=== PATIENT | male | born 1990 | race Caucasian/White ===

== ENCOUNTER 2016-08-30 12:06 | Observation (INO) | payer OTHER ==
--- NOTE | 2016-08-30 12:20 | CPEKG ---
Heart Rate: 113 RR Interval: 531 P-R Interval: 132 QRSD Interval: 92 QT Interval: 320 QTC Interval: 439 P Sapello: 40 QRS Sapello: 69 T Wave Sapello: -42 EKG Severity - ABNORMAL ECG - EKG Impression: SINUS TACHYCARDIA EKG Impression: INFERIOR Q WAVES, PROBABLY NORMAL VARIATION EKG Impression: ABNORMAL T, CONSIDER ISCHEMIA, INFERIOR LEADS Electronically Signed By: Reno Rolle 30-Aug-2016 15:51:41
[2016-08-30 12:32] LABS: % IMMATURE GRANULYOCYTES 0.2 % (0.0-1.1); ABSOLUTE IMMATURE GRANULOCYTES 0.02 10^3/uL (0.00-0.10); ADD DIFF? NO; ADD MORPH? NO; ADD SCAN? NO; ATYPICAL LYMPHOCYTE FLAG 0 (0-99); FRAGMENT RBC FLAG 0 (0-99); HEMATOCRIT 46.2 % (40.0-51.0); HEMOGLOBIN 16.1 g/dL (13.7-17.5); LEFT SHIFT FLG 0 (0-99); LIPEMIA HEMOLYSIS FLAG 90 (0-99); MEAN CELL HEMOGLOBIN 30.7 pg (27.9-34.1); MEAN CELL HEMOGLOBIN CONCENTR. 34.8 g/dL (32.4-36.7); MEAN PLATELET VOLUME 8.9 fL (8.7-11.7); PLATELET CLUMPS FLAG 0 (0-99); PLATELET COUNT 287 10^3/uL (150-400); RED BLOOD CELL COUNT 5.25 10^6/uL (4.40-6.38); RED CELL DISTRIBUTION WIDTH 13.3 % (11.5-15.2)
[2016-08-30 12:50] LABS: ALANINE AMINOTRANSFERASE 70 IU/L (21-72); ALBUMIN 4.6 g/dL (3.5-5.0); ALKALINE PHOSPHATASE 72 IU/L (38-126); ANION GAP 15 mEq/L (8-16); ASPARTATE AMINOTRANSFERASE 51 IU/L (17-59); CALCIUM 9.8 mg/dL (8.5-10.4); CARBON DIOXIDE 25 mEq/l (22-31); CHLORIDE 100 mEq/L (97-110); CREATININE 1.1 mg/dL (0.7-1.3); GLOMERULAR FILTRATION RATE > 60; GLUCOSE 125 mg/dL (70-100); POTASSIUM 3.9 mEq/L (3.5-5.2); SODIUM 140 mEq/L (134-144)
[2016-08-30 13:00] LABS: TROPONIN I < 0.012 ng/mL (0-0.034)
--- NOTE | 2016-08-30 13:31 | EDPHY ---
H & P Smoking Status: Never smoked Time Seen by Provider: 08/30/16 12:51 HPI/ROS: CHIEF COMPLAINT: Syncope, chest pain HISTORY OF PRESENT ILLNESS: 26-year-old male presents to the emergency department by private vehicle complaining of chest pain for the last 12 hours. The patient states that at 11:00 p.m. he was walking into the kitchen and then had a syncopal episode. He apparently fell into the couch. He he denies hitting his head or losing consciousness. He does report pain in his shoulders and his neck for an hour prior to his syncopal episode. He now has some mild pain in his chest. He denies shortness of breath. No fevers or chills. No headache. No reported trauma. The patient has a history of hypertension since the age of 20. He was on lisinopril for about a year however this did not do anything and therefore he stop this medication. For the last 1 week he has been taking chlorthalidone his blood pressure however he developed diarrhea and so he stopped this medication 2 days ago. REVIEW OF SYSTEMS: Constitutional: No fever, no chills. Eyes: No double or blurry vision. ENT: No sore throat. Respiratory: No cough, no shortness of breath. Cardiac: chest pain. Gastrointestinal: No abdominal pain, vomiting or diarrhea. Genitourinary: No dysuria. Musculoskeletal: No neck or back pain. Skin: No rashes. Neurological: No headache. (Christy Louise) Past Medical/Surgical History: Hypertension Pertinent family history: Father presumably of heart attack in his low 40s (Christy Louise) Social History: Single (Christy Louise) Physical Exam: General Appearance: Alert, no distress. 160/120, heart rate 95 Eyes: Pupils equal and round. Extraocular motions are all intact. ENT: Mouth: Mucous membranes moist. Respiratory: No wheezing, rhonchi, or rales, lungs are clear to auscultation. Unable to reproduce pain with palpation to the anterior aspect of his chest. Cardiovascular: Regular rate and rhythm. Gastrointestinal: Abdomen is soft and nontender, no masses, no rebound or guarding, bowel sounds normal. Neurological: Alert and oriented x 3, cranial nerves II through XII grossly intact Skin: Warm and dry, no rashes. Musculoskeletal: Nontender to palpate along the cervical, thoracic or lumbar spine. Neck is supple. Extremities: Full range of motion and no peripheral edema. Psychiatric: Patient is oriented X 3, there is no agitation. (Christy Louise) Constitutional: Initial Vital Signs Temperature (C) 36.8 C 08/30/16 12:16 Heart Rate 120 H 08/30/16 12:16 Respiratory Rate 17 08/30/16 12:16 Blood Pressure 177/122 H 08/30/16 12:16 O2 Sat (%) 95 08/30/16 12:16 O2 Delivery Mode Room Air Allergies/Adverse Reactions: No Known Allergies Allergy (Unverified 08/30/16 12:16) Home Medications: Medication Instructions Recorded NK [No Known Home Meds] 08/30/16 Medical Decision Making ED Course/Re-evaluation: 26-year-old male presents after having a syncopal episode last night. He has a history of hypertension and currently has mild chest pain. Given the patient's significant family medical history including father of likely heart attack in his low 40s and history of hypertension, I recommended admission to the hospital. Patient will be admitted to the [facility] for cardiac monitoring to Dr. Benson Harris. (Christy Louise) I supervised the PA evaluation and care with the patient and agree with the assessment and plan. (Reno Rolle) Differential Diagnosis: Syncope including but not limited to vasovagal syncope, arrhythmia, dehydration , and blood loss. (Christy Louise) - Data Points Laboratory Results: Laboratory Results 08/30/16 12:15 08/30/16 12:15 Medications Given: Discontinued Medications Aspirin (Aspirin) 325 mg PO DAILY [facility] Stop: 02/26/17 14:59 Last Admin: 08/31/16 07:45 Dose: 325 mg Sodium Chloride (Ns) 1,000 mls @ 3,000 mls/hr IV ONCE ONE Stop: 08/30/16 15:05 Last Admin: 08/30/16 16:53 Dose: 1,000 mls Labetalol HCl (Trandate) 200 mg PO BID [facility] Stop: 02/26/17 16:59 Last Admin: 08/31/16 09:25 Dose: 200 mg Departure - Departure Disposition: [facility] Acute Clinical Impression: Syncope, Hypertension Condition: Good
--- NOTE | 2016-08-30 14:11 | DX ---
Chest, PA and lateral. HISTORY: Chest pain. Fainted yesterday. FINDINGS: Heart size is within normal limits. Pulmonary vascularity appears normal. The lungs are travis ar. No evidence for pleural effusion or pneumothorax. No significant osseous abnormality. IMPRESSION: Normal chest x-ray.
[2016-08-30] MEDS ORDERED: NS 1,000 ML IV ONE (14:46)
[2016-08-30] MEDS ORDERED: ACETAMINOPHEN 325 MG TAB PO PRN (14:49)
[2016-08-30] MEDS ORDERED: IOPAMIDOL (ISOVUE 370) 100 ML BTL IV ONE (14:57)
[2016-08-30 15:21] LABS: TROPONIN I < 0.012 ng/mL (0-0.034)
--- NOTE | 2016-08-30 15:47 | CT ---
CT Pulmonary Angiogram 1511 hours Clinical Indications: Tachycardia. EKG shows changes of right heart strain. Technique: Thinly collimated multidetector helical CT imaging was performed through the chest while 90 mL Isovue-370 were injected intravenously without complication. The images were reconstructed in multiple planes. Dose reduction techniques were utilized. Findings: CT Angiogram: There is no evidence of intraluminal thrombus within the pulmonary arterial system. Th e thoracic aorta has a normal contour without evidence of aneurysm or dissection. There is no perica rdial effusion. Heart size is normal. There is mild thickening of the left ventricular wall diffusely . The interventricular septum measures 17 mm in thickness. The origins of the coronary arteries are n ormal in appearance. CT Chest: The lungs are clear without infiltrate or effusion. There are no pulmonary nodules. Soft tissues are unremarkable. The visualized upper abdominal structures are unremarkable during arterial phase of imaging. Underlying hepatic steatosis is suspected. Skeletal system: Vertebral body heights are well-maintained. There are no lytic or sclerotic osseous lesions. Impression: 1. No evidence of pulmonary embolus using CT protocol. 2. Mild left ventricular hypertrophy suspected. 3. Possible hepatic steatosis.
--- NOTE | 2016-08-30 16:27 | GHP ---
[f rep st] HISTORY AND PHYSICAL DATE OF ADMISSION: 08/30/2016 HISTORY OF PRESENT ILLNESS: The patient is a pleasant 26-year-old gentleman with a history of hypert ension who presents with neck pain. He was recently started on chlorthalidone about 1 week ago and he developed diarrhea and "weird erect ions." Sounds like they lasted a long time, but they ultimately went down. He stopped it 3 days preeti or to presentation. His symptoms have subsequently resolved. He felt in his usual state of health 2 days ago and then yesterday, last evening, he felt some neck pain, and he had a syncopal episode whe re he felt everything kind of go dark. He laid down, he put his legs above his head, and it resolved . Then last night he had neck pain. He has had no pleuritic pain. No calf edema. No long car trip s or plane trips. No recent hospitalizations. No family history of VTE. He takes no estrogen-conta ining compounds. His father in his 40s of uncertain etiology. It sounds like he was seen in [facility] and had a negative D-dimer yesterday. He has not had hemoptysis. He is not short of breath. He did not prior to this have a history of an ginal symptoms and has adequate exercise tolerance. He does have striae or stretch jha on his abdomen and groin, and he has been worked up for Orquidea disease at least with a morning cortisol which has been normal. The patient's heart rate had no response to vagal maneuvers at the bedside. REVIEW OF SYSTEMS: Complete 10-point review of systems conducted negative except as noted in the HPI . PAST MEDICAL HISTORY: 1. Hypertension. 2. Stretch jha of possible Hunker's. ALLERGIES: No known drug allergies; although, he appears intolerant of chlorthalidone. CURRENT MEDICATIONS: None. SOCIAL HISTORY: He is a student financial aid manager in chemistry at . He does not smoke cigarettes. He drin ks 1-2 drinks daily. FAMILY HISTORY: Significant in that his father at an early age of uncertain cause, possibly car diac. PHYSICAL EXAM: VITAL SIGNS: Presented with vitals temp 36.8, blood pressure 177/122, pulse 120, dayna athing 17 times a minute, 95% on room air. GENERAL: No acute distress. HEENT: Sclerae anicteric. Oropharynx clear. Mucous membranes are moist. NECK: Supple without lymphadenopathy or JVD. LUNGS : Clear to auscultation bilaterally. HEART: S1, S2 and tachycardic. ABDOMEN: Soft, nontender, no ndistended. There are stretch jha in his inferior abdomen and under his pectoral muscles. LOWER E XTREMITIES: Without edema. Calves nontender. SKIN: Without rash. NEUROLOGIC: Grossly nonfocal. LABS: Sodium 140, potassium 3.9, chloride 100, bicarb 25, BUN 17, creatinine 1.1. Glucose 125. LFT s normal. Troponin less than 0.012. White count 8.3, hematocrit 46, platelets are 287,000. Chest x-ray, interpreted by me, shows no acute cardiopulmonary disease. EKG, interpreted by me, shows sinus tach at 113 with normal axis and intervals. There is an S wave i n lead I. There is T-wave inversion in lead III with possible Q in lead III. There are diffuse flat Ts in the lateral precordial leads. I have discussed the case with Christy Louise in the emergency department. ASSESSMENT/PLAN: A 26-year-old gentleman who presents with hypertension, tachycardia, abnormal EKG, and syncopal episode. 1. Question pulmonary embolism. Certainly, the patient has sinus tachycardia and possible right hea rt strain on EKG. He did have a negative D-dimer yesterday. That test is imperfect and certainly th e test characteristics are less impressive in a high-risk patient which he represents now. Perform C T PE. 2. Question coronary artery disease. It sounds like his father may have had sudden cardiac in his 40s. We will cycle his troponins and order a stress test in the morning. 3. Sinus tachycardia. Workup, will undergo as above. Reviewed the EKG to verify sinus. I will horacio ck a stat TSH and I will fluid challenge him. Also, will check a cortisol in the morning. I do not think the patient is in alcohol withdrawal at this time; although, his vital signs support that. His mental status is very clear and he is not tremulous, we will follow. I do not think this represents sepsis. The patient has no focus of infection. He is afebrile without a white count. 4. Hypertension: The patient warrants an antihypertensives medication. I would likely start an ang iotensin converting enzyme inhibitor following confirmation of no pulmonary embolism. 5. Prophylaxis: Pharmacology prophylaxis indicated if in the hospital longer than 24 hours, he curr ently is not. 6. Disposition: Observation status, [facility]. /[id number]/MODL
[2016-08-30] MEDS: LABETALOL HCL 200 MG TAB PO SCH ×2 (17:10→20:14)
[2016-08-30] MEDS: ASPIRIN 325 MG TAB PO SCH (17:11)
[2016-08-31 06:46] LABS: CHOLESTEROL 243 mg/dL (140-200); CHOLESTEROL/HDL RATIO 5.79 RATIO (1.00-4.97); HIGH DENSITY LIPOPROTEIN 42 mg/dL (40-70); NON-HIGH DENSITY LIPOPROTEIN 201 mg/dL (90-129)
[2016-08-31 07:03] LABS: TRIGLYCERIDE 497 mg/dL (40-150)
[2016-08-31 07:17] LABS: CORTISOL-AM 8.4 ug/dL (4.5-22.7)
[2016-08-31] MEDS: ASPIRIN 325 MG TAB PO SCH (07:45)
[2016-08-31] MEDS: LABETALOL HCL 200 MG TAB PO SCH (09:25)
[2016-08-31 12:23] VITALS: BP 146/88; PULSE 105; RESP 16; TEMP 98.4; O2SAT 94
--- NOTE | 2016-08-31 13:12 | CPR ---
[f rep st] NONINVASIVE CARDIAC PROCEDURE REPORT PROCEDURE: Exercise treadmill myocardial perfusion imaging study. INDICATION FOR PROCEDURE: Syncopal event, abnormal electrocardiogram, and a family history of early onset of coronary artery disease. DESCRIPTION OF PROCEDURE: After obtaining informed consent, patient was placed on electrocardiogram, initial EKG shows sinus rhythm, normal axis, nondiagnostic Q-waves in inferior leads, T-wave biphasic T-waves in lead 3. Patient denies of any chest pain, shortness of breath, or symptoms suggesting of ischemia. Initial blood pressure 110/80, saturating 95% on room air. STRESS: Patient was placed on an exercise treadmill, following standard Mamadou protocol with the following findings: 1. Patient exercised for 9 minutes. 2. 10.3 METS. 3. Obtaining a heart rate of 182 BPM, which was 92% of his MPHR. 4. Patient had no chest pain or symptoms suggesting of ischemia. 5. Patient had no significant EKG changes at peak exercise suggesting of ischemia. 6. BP variation at rest 110/80, at stress 168/82. 7. Patient had no ectopic beats or arrhythmias noted during rest, stress, or recovery. 8. Patient's SpO2 remained greater than 90% throughout the testing. 9. Test was stopped due to maximum effort. 10. Castanon treadmill score of 9, placing him at low cardiovascular risk. RECOVERY: Patient recovered for 5 minutes, continued to be asymptomatic of symptoms suggesting ischemia, heart rate returned down to baseline, blood pressure recovered, final blood pressure was 130/80, patient maintaining sats, no arrhythmias noted during recovery. Vital signs were stable, and patient went down for poststress MPI imaging. IMPRESSION: A 26-year-old male with recent syncopal event and noted mildly abnormal electrocardiogram on admission, with significant family history of early onset of coronary artery disease, reporting Father at age 45 of myocardial infarction. He underwent exercise treadmill testing, showing no signs of ischemia at peak exercise, no symptoms of ischemia during testing, normal BP response, no arrhythmias noted, Castanon treadmill score of 9 placing him at low cardiovascular risk. Hospitalist service has been notified of results. /[id number]/MODL MTDD
--- NOTE | 2016-08-31 14:16 | NM ---
Nuclear Medicine Myocardial Perfusion Stress and Rest Imaging at 1025 hour History: Chest pain. Family history of heart disease at an early age. Technique: Rest imaging performed with intravenous administration 11.5 mCi of technetium 99m label ed sestamibi. Stress imaging performed with the intravenous administration of 28.5 mCi of technetium 99m labeled sestamibi utilizing Mamadou exercise protocol achieving 10.3 METS. The patient reached a maximum heart rate of 92% of maximum predicted Findings: Normal left ventricular ejection fraction of 65 %. Stress and rest imaging demonstrates no evidence of fixed or reversible defects to suggest ischemia or infarct. No focal wall motion abno rmalities. There is incidental mild decreased uptake in the left ventricular apex compatible with api pramod thinning on stress and rest imaging. This was also confirmed on prior CT chest study from [facility]. Impression: 1. Normal left ventricular ejection fraction of 65 %. 2. No focal wall motion abnormalities. 3. No definite ischemia or infarct.
--- NOTE | 2016-08-31 15:11 | PDDCSUM ---
Discharge Summary Discharge Summary: DIAGNOSES: SYNCOPE WITHOUT RECURRENCE NECK/CHEST PAIN, RESOLVED RULED OUT FOR AZ RULED OUT FOR PE BY CT ANGIO NORMAL MYOCARDIAL PERFUSION SCAN AFTER NORMAL TREADMILL STRESS TEST CHRONIC HTN SUSPECTED SIDE EFFECTS OF CHLORTHALIDONE COMPLICATIONS: NONE HOSPITAL COURSE This patient had no recurrence of his presenting symptoms here in the hospital. He had no arrythmia, no chf, no pe, no sign of infection, and ruled out for AZ. Stress test with myocardial perfusion images with no sign of ischemia, with good ejection fraction in 60s. He now feels well, is eating well, no resp sxs, and no fever. He is stable for discharge. He still has mild HTN that does not require immediate treatment but should be treated. I have recommended daily exercise and wt loss, diet changes for treatment of his HTN and he should follow up at [facility] for reassessment and consideration of trial of another meidcation. MEDICATION CHANGES: -discontinue chlorthalidone F/U: at [facility] in 2-4 weeks.
== END 2016-08-31 16:43 | disposition home or self-care (01) ==
LOC: F1N 15:31
PROVIDERS: ADMIT Internal Medicine; ATTEND Internal Medicine
DX: R55 Syncope and collapse (principal); R07.9 Chest pain, unspecified; I10 Essential (primary) hypertension; Z82.49 Family history of ischemic heart disease and other diseases of the circulatory system
CPT/HCPCS: 71020; 71275; 78452; 93005; 93017; 99285; G0378; Q9967